=== PATIENT | female | born 2000 | race African-American/Black ===

== ENCOUNTER 2021-08-10 02:35 | Emergency (ER) | payer MEDICAID, OTHER ==
[~2021-08-10] VITALS: Ht 162.6 cm; Wt 60.0 kg
[2021-08-10] MEDS ORDERED: LEVETIRACETAM 500MG PREMIX 100 ML IV ONE (03:15)
[2021-08-10 03:52] LABS: BASOPHILS % 0.2 % (0.0-2.0); EOSINOPHILS % 0.1 % (0.0-5.0); HEMATOCRIT. 35.1 % (36.0-48.0); HEMOGLOBIN. 11.6 g/dL (12.0-16.0); LYMPHOCYTES % 16.8 % (20.0-50.0); MEAN CORPUSCULAR HEMOGLOBIN 29.5 pg (28.0-32.0); MEAN CORPUSCULAR VOLUME 89.2 fL (81.0-99.0); MEAN PLATELET VOLUME 8.5 fl (7.4-10.4); MONOCYTES % 9.7 % (2.0-8.0); NEUTROPHILS % 73.2 % (40.0-76.0); PLATELET 202 x1000/uL (130-400); RED BLOOD CELL COUNT 3.94 mill/uL (4.2-5.4); RED CELL DISTRIBUTION WIDTH 13.7 % (11.6-14.6)
[2021-08-10 03:58] LABS: CHLORIDE 108 mEq/L (98-107)
[2021-08-10 04:02] LABS: HCG SCREEN NEGATIVE
[2021-08-10] MEDS ORDERED: KEPP500 MT (05:40)
[2021-08-10 06:00] VITALS: BP 112/61
== END 2021-08-10 06:13 | disposition home or self-care (01) ==
LOC: ER 02:35
DX: G40.909 Epilepsy, unspecified, not intractable, without status epilepticus (principal); R00.0 Tachycardia, unspecified; H57.13 Ocular pain, bilateral
CPT/HCPCS: 36415; 70450; 80053; 84703; 85025; 93005; 96365; 99285; J1953

== ENCOUNTER 2023-05-26 13:46 | Emergency (ER) | payer MEDICAID ==
[~2023-05-26] VITALS: Ht 162.6 cm; Wt 53.0 kg
[~2023-05-26 13:46] MED LIST: KEPP500 MT
[2023-05-26 13:51] VITALS: BP 126/84; PULSE 100; RESP 18; TEMP 98.8; O2SAT 97
[2023-05-26] MEDS ORDERED: SODIUM CHLORIDE 0.9% 1,000 ML IV ONE (14:00)
== END 2023-05-26 14:19 | disposition left against medical advice (07) ==
LOC: ER 13:46
DX: R55 Syncope and collapse (principal); R00.2 Palpitations; Z86.59 Personal history of other mental and behavioral disorders
CPT/HCPCS: 99283; 93005; J7030

== ENCOUNTER 2025-09-25 13:37 | Emergency (ER) | payer MEDICAID, OTHER ==
[~2025-09-25] VITALS: Ht 167.6 cm; Wt 55.0 kg
[2025-09-25 13:39] VITALS: O2SAT 96
[2025-09-25] MEDS: SODIUM CHLORIDE 0.9% 1,000 ML IV ONE (14:22)
[2025-09-25] MEDS: KETOROLAC 15MG/ML VIAL IV ONE (14:22)
[2025-09-25] MEDS: AZITHROMYCIN 500MG/250ML 250 ML IV SCH (14:23)
[2025-09-25 14:35] LABS: BASOPHILS % 0.3 % (0.0-2.0); EOSINOPHILS % 0.1 % (0.0-5.0); HEMATOCRIT. 41.4 % (36.0-48.0); HEMOGLOBIN. 13.5 g/dL (12.0-16.0); LYMPHOCYTES % 14.7 % (20.0-50.0); MEAN PLATELET VOLUME 8.4 fl (7.4-10.4); MONOCYTES % 11.2 % (2.0-8.0); NEUTROPHILS % 73.7 % (40.0-76.0); PLATELET 218 x1000/uL (130-400); RED BLOOD CELL COUNT 4.67 mill/uL (4.2-5.4); RED CELL DISTRIBUTION WIDTH 13.0 % (11.6-14.6)
[2025-09-25 14:47] LABS: CREATININE 0.8 mg/dL (0.6-1.0); TROPONIN I HIGH SENSITIVITY < 4 ng/L (3.0-34); UREA NITROGEN BLOOD 9 mg/dL (9-23)
[2025-09-25 14:48] LABS: PROTEIN TOTAL 8.1 g/dL (6.0-8.3)
[2025-09-25 14:49] LABS: ASPARTATE AMINOTRANSFERASE 22 IU/L (<34); BILIRUBIN DIRECT 0.1 mg/dL (<=3.0); BILIRUBIN TOTAL 0.5 mg/dL (0.1-1.0)
[2025-09-25] MEDS ORDERED: AZIT250T12 MT (15:17)
[2025-09-25] MEDS ORDERED: GUAI237L83 MT (15:17)
[2025-09-25] MEDS ORDERED: IBUP-2030 MT (15:17)
[2025-09-25 16:05] VITALS: BP 95/45; PULSE 71; RESP 19; TEMP 36.6; O2SAT 96
[2025-09-25 16:26] LABS: INFLUENZA TYPE A Presumptive Negative (Pres. Neg.); INFLUENZA TYPE B Presumptive Negative (Pres. Neg.)
[2025-09-25 16:27] LABS: RESPIRATORY SYNCYTIAL VIRUS Not Detected (Not Detectd)
== END 2025-09-25 16:26 | disposition home or self-care (01) ==
LOC: ER 14:16 → CMPBEDREQ 09-26 08:26
DX: R07.2 Precordial pain (principal); J20.9 Acute bronchitis, unspecified; R63.30 Feeding difficulties, unspecified; R06.02 Shortness of breath; Z20.822 Contact with and (suspected) exposure to COVID-19; Z79.899 Other long term (current) drug therapy
CPT/HCPCS: 99285; 96365; 71045; 96375; 87426; 80076; 80048; 83880; 83735; 85025; 87420; 84484; 87804 ×2; 36415; 93005; J1885; J0456; J7030; A4606